=== PATIENT | female | born 1940 | race Caucasian/White ===

== ENCOUNTER 2017-12-22 10:18 | Observation (INO) | payer MEDICARE, OTHER ==
--- NOTE | 2017-12-22 10:45 | ERNOTE ---
Back Pain ER HPI Date of Service: 12/22/17 Presenting Symptoms: hx chronic back pain Time Seen by Provider: 12/22/17 10:38 Source: patient Exam Limitations: no limitations Immunizations: IMMUNIZATION HX Immunizations Up to Date Yes History of Influenza Vaccine No Hx Pneumococcal Vaccination Yes Allergies/Adverse Reactions: Allergies naloxone [From Narcan] Adverse Reaction (Verified 12/17/17 09:28) Home Medications: HOME MEDICATIONS Acetaminophen [Tylenol] 500 mg PO DAILY 12/17/17 [Last Taken Unknown] Amiodarone HCl 200 mg PO DAILY 12/17/17 [Last Taken Unknown] Cetirizine HCl [Zyrtec] 10 mg PO DAILY 12/17/17 [Last Taken Unknown] Cholecalciferol (Vitamin D3) [Vitamin D3] 2,000 unit PO DAILY 12/17/17 [Last Taken Unknown] Insulin Degludec [Tresiba Flextouch U-100] 74 unit SQ AC 12/17/17 [Last Taken Unknown] Insulin Lispro [Humalog] See Protocol SQ PRN PRN 12/17/17 [Last Taken Unknown] Levothyroxine Sodium [Tirosint] 75 mcg PO DAILY 12/17/17 [Last Taken Unknown] Losartan Potassium [Cozaar] 100 mg PO DAILY 12/17/17 [Last Taken Unknown] Metoprolol Succinate 50 mg PO DAILY 12/17/17 [Last Taken Unknown] Omeprazole 20 mg PO DAILY 12/17/17 [Last Taken Unknown] Rosuvastatin Calcium [Crestor] 20 mg PO DAILY 12/17/17 [Last Taken Unknown] Torsemide [Demadex] 20 mg PO DAILY 12/17/17 [Last Taken Unknown] predniSONE [Deltasone] 20 mg PO BID #10 tab 12/17/17 [Last Taken Unknown] - Pain Score Pain Score #1 Pain Score: 7 Narrative: The patient is a 77 year old female who presents for diarrhea dark red in color which has been present for 2 days. There are associated symptoms of malodorous stool. The patient reports pain to lumbar spine, 7/10 which has been present for 4 weeks. There are no alleviating factors. There are aggravating factors of lying flat and ambulation. Previous treatments have included: Tylenol without improvement. The past medical history includes: DM , HTN, COPD and aortic valve replacement. The social history is negative. The patient has had no ill contacts. Patient reports pain to lumbar spine with radiation into left buttock. Patient states she has numbness down both lateral leg. Patient began having dark red stools yesterday x1 episode with another episode this morning. Patient states she was previously treated with prednisone for low back pain and finished prescription yesterday. Patient was scheduled to see today for presumed scheduling of MRI for lumbar spine pain with sciatica. Review of Systems - Review of Systems Constitutional: Present: fatigue. Absent: fever EYE: Present: no symptoms reported ENT: Present: no symptoms reported. Absent: ear pain, nasal drainage, sore throat Respiratory: Present: shortness of breath, cough Cardiology: Present: no symptoms reported. Absent: chest pain Gastrointestinal/Abdominal: Present: nausea, diarrhea. Absent: vomiting, abdominal pain Genitourinary: Absent: dysuria Musculoskeletal: Present: back pain Skin: Present: no symptoms reported. Absent: rash Neurological: Present: dizziness/light-headedness Endocrine: Present: no symptoms reported Hematologic/Lymphatic: Present: no symptoms reported Psych: Present: no symptoms reported All Other Systems: All systems neg except as marked Medical History (Last Reviewed 12/22/17 @ 11:10 by JULIO Jones) COPD (chronic obstructive pulmonary disease) Diabetes HTN (hypertension) Surgical History: Surgical History (Last Reviewed 12/22/17 @ 11:10 by JULIO Jones) Coronary artery disease involving coronary bypass graft H/O heart artery stent H/O: hysterectomy Heart valve replaced Family History: Family History (Last Reviewed 12/22/17 @ 11:10 by JULIO Jones) Grandmother Heart disease Sister Cancer Son Leukemia Social History: Preferred Language Korean Do you have any congregational or Yes: babtist cultural preference? Smoking Status Former smoker Have you smoked in the past 12 No months Do you dip or chew tobacco No Alcohol Use sober Drug Use none Physical Exam - Physical Exam General Appearance: Present: wd/wn, alert, mild distress Head Exam: Present: normal inspection Eye Exam: Normal inspection: bilateral, Conjunctivae pale: bilateral Ears, Nose, Throat: Present: normal ENT inspection, normal pharynx Neck: Present: normal inspection Respiratory: Present: no respiratory distress, normal breath sounds, lungs clear Cardiovascular/Chest: Present: regular rate, rhythm, systolic murmur Peripheral Pulses: N=norm/S=strong/W=weak/B=bound/A=absent: Radial (L): Normal Gastrointestinal/Abdominal: Present: normal bowel sounds, nontender, nondistended, soft, no organomegaly, other - patient had BM in ER with mandi blood and malodorous Back Exam: Present: normal inspection, vertebral tenderness - lumbosacral, pain over left buttock Neurological Exam: Present: alert, oriented, normal mood/affect. Absent: motor weakness Skin Exam: Present: normal color, warm/dry ED Progress - Date and Time Seen: Date and Time: 12/22/17 12:53 Spoke with and patient to be referred to since she is not established. Spoke with Dr. Perez regarding care patient will be admitted under his service for lower GI bleed, diabetes, CAD, and intractable lumbar spine pain. Dr. delgado will be contacted for consult regarding lower GI bleed. Spoke with Dr. Leon he will consult as inpatient. Requested patient be set up for bleeding scan. - Results and Orders Patient's Lab Results:: I have reviewed the patient's lab results. - Vital Signs Patient's Vital Signs:: I have reviewed the patient's vital signs. Vital Signs: Vital Signs 12/22/17 10:26 Temperature 36.7 C Pulse Rate 78 Respiratory Rate 14 Blood Pressure 123/41 O2 Sat by Pulse Oximetry 95 - EKG EKG: NSR EKG read: Reviewed by me EKG Comments: Reviewed with . - X-Ray X-Ray #1 X-Ray: abdomen Interpretation: Reviewed by me X-ray Comments: X-RAY REPORT ~[id number] RAD/Abdomen Flat W/ Upright *~ Exam Date: 12/22/2017 10:48 Ordering Physician: Ayana Benitez HISTORY: gi bleed Additional history from technologist: BACK PAIN FOR 4 WEEKS-BEEN GOING TO [facility], BLOODY DIARRHEA-YESTERDAY AND TODAY TECHNIQUE: AP upright and supine views of the abdomen were obtained, total of 5 images. COMPARISONS: None available. FINDINGS: Abdomen Flat W/ Upright *: No subdiaphragmatic free air. No abnormal dilation of large or small bowel. Patient has scattered air-fluid levels throughout the nondilated small and large bowel segments throughout the abdomen. There is questionable colonic bowel wall thickening of the transverse colon in the midabdomen. Vascular calcifications is suggested. No definite signs of nephrolithiasis or ureterolithiasis. Degenerative changes of the spine and bilateral hips noted. There is a levoconvex scoliosis of the lumbar spine. IMPRESSION: 1. Abnormal but nonspecific bowel gas pattern. Potential bowel wall thickening of the transverse colon noted. Consider potential colitis. 2. Additional comments are as above. Electronically signed by Nandini Nails M.D.. - Progress/Reassessment Chief Complaint: Back Pain Plan - Plan Plan: Patient will be admitted under the service of Dr. Perez with a consult for Dr. Leon regarding lower GI bleed. Patient will receive nuc med bleeding scan prior to her admission. [facility] discussed results that were called to me by Dr. Nails with Dr. Perez prior to patient being transferred to the floor. Dr. Perez states he will follow-up with additional testing needed once patient is admitted. Departure Clinical Impression: Lower GI bleed - Departure Disposition: Still a patient Condition: Stable
[2017-12-22 11:12] LABS: Hemoglobin 9.7 gm/dL (12.5-16.0); Mean Cell Volume 83.1 fl (78-100); Mean Corpuscular Hemoglobin 26.9 pg (27-31); Mean Corpuscular Hgb Conc 32.3 g/dl (32-36); Platelet Count 388 K/mm3 (150-450); Red Blood Count 3.61 M/mm3 (4.2-5.4); Red Cell Distribution Width 13.9 % (11.5-14.0); White Blood Count 24.6 K/mm3 (4.0-10.5)
[2017-12-22 11:18] LABS: Total Cells Counted 100
[2017-12-22 11:22] LABS: Prothrombin Time (Patient) 10.8 Seconds (9.0-11.0)
[2017-12-22 11:24] LABS: Albumin * 2.7 gm/dl (3.4-5.0); Anion Gap 17.8 mmol/L (6.8-13.8); BUN/Creatinine Ratio 30.8 (9.0-21.6); Bilirubin, Total 0.2 mg/dL (0.0-1.1); Ca. Corrected For Albumin 10.3 mg/dL (8.4-10.2); Calcium * 9.6 mg/dL (7.9-10.9); Carbon Dioxide 21.4 mmol/L (24-32.6); Potassium 5.2 mmol/L (3.4-4.6); Total Protein 6.9 gm/dL (6.2-8.2)
[2017-12-22 11:27] LABS: INR 1.08 INR (0.90-1.10); Partial Thrombolplastin Time 23.4 Seconds (24-32)
[2017-12-22 11:31] LABS: Immature Granulocyte 1 (0-1); Lymphocyte 9 % (20-51); Monocyte 1 % (0-9); Neutrophil 89 % (42-75); Neutrophil # 21.9 K/mm3 (1.3-6.0); Platelet Estimate Normal (NORMAL); RBC Morphology Normal (NORMAL)
[2017-12-22] MEDS ORDERED: NORMAL SALINE 1,000 ML IV ONE (11:36)
[2017-12-22] MEDS ORDERED: PANTOPRAZOLE SODIUM 40 MG in NORMAL SALINE 100 ML IV ONE (11:48)
[2017-12-22] MEDS ORDERED: PANTOPRAZOLE SODIUM 40 MG/100 ML PIGGYBACK IV ONE (12:05)
[2017-12-22 12:15] LABS: Urine Bilirubin Negative (NEGATIVE); Urine Blood Negative /ul (NEGATIVE); Urine Ketone Negative (NEGATIVE); Urine Protein Negative (NEGATIVE); Urine Urobilinogen Normal (NORMAL); Urine pH 5.5 pH (5.0-7.0)
[2017-12-22] MEDS ORDERED: HYDROmorphone HCL 1 MG/ML DISP.SYRIN IV ONE ×4 (12:18→14:16)
[2017-12-22] MEDS ORDERED: HYDROmorphone HCL 1 MG/ML DISP.SYRIN ONE ×2 (12:18→13:46)
[2017-12-22 12:36] LABS: Urine Nitrite Positive (NEGATIVE)
[2017-12-22 12:37] LABS: Urine Appearance Slightly Cloudy (CLEAR); Urine Bacteria 3+; Urine Color Yellow; Urine RBC 0-5 /hpf (0-5)
[2017-12-22] MEDS ORDERED: ONDANSETRON HCL/PF 2 MG/ML VIAL IV PRN (12:58)
[2017-12-22] MEDS ORDERED: ONDANSETRON HCL/PF 2 MG/ML VIAL ONE (15:05)
--- NOTE | 2017-12-22 19:40 | CONS ---
[facility] - General Date of Service: 12/22/17 Source: patient, RN/MD, RN notes reviewed Exam Limitations: no limitations - History of Present Illness Initial Comments: She had a bowel movement yesterday that had blood in it, and then today had an "accident" loose BM that was blood and clots. Had another bloody stool this afternoon. NO abdominal pain. She has had 4 weeks of low back pain which is severe, for which she was to see Dr Metzger today. It is low and wraps around to right groin. She has had prior colonoscopies--the last was 5 years ago and she had a polyp removed. Does not know if she has diverticulosis. Irregular bowels, hard loose and skips days. She is on Plavix for coronary stent until March 2018 (Dr Trujillo in [place]) Allergies/Adverse Reactions: Allergies ANILA Inhibitors Adverse Reaction (Verified 12/22/17 15:39) naloxone [From Narcan] Adverse Reaction (Verified 12/17/17 09:28) naproxen [From Naprosyn] Adverse Reaction (Verified 12/22/17 15:39) Home Medications: Home Medications Medication Instructions Recorded Last Taken Acetaminophen [Tylenol] 500 mg PO DAILY 12/17/17 Unknown Amiodarone HCl 200 mg PO DAILY 12/17/17 Unknown Cetirizine HCl [Zyrtec] 10 mg PO DAILY 12/17/17 Unknown Cholecalciferol (Vitamin D3) 2,000 unit PO BID 12/17/17 Unknown [Vitamin D3] Insulin Degludec [Tresiba 74 unit SQ DAILY 12/17/17 Unknown Flextouch U-100] Insulin Lispro [Humalog] See Protocol SQ PRN PRN 12/17/17 Unknown Levothyroxine Sodium [Tirosint] 75 mcg PO DAILY 12/17/17 Unknown Losartan Potassium [Cozaar] 100 mg PO DAILY 12/17/17 Unknown Metoprolol Succinate 50 mg PO DAILY 12/17/17 Unknown Omeprazole 20 mg PO BID 12/17/17 Unknown Rosuvastatin Calcium [Crestor] 20 mg PO DAILY 12/17/17 Unknown Torsemide [Demadex] 20 mg PO DAILY 12/17/17 Unknown Medications - Medications Current Medications: Current Medications Ondansetron HCl (Zofran) 4 mg IV Q6H PRN PRN Reason: Nausea And Vomiting Stop: 01/21/18 12:59 Last Admin: 12/22/17 15:09 Dose: 4 mg Review of Systems - Review of Systems Generalized/Overall Review: Absent: Chills, Fever EENTM: Present: No Symptoms Reported Respiratory: Present: No Symptoms Reported Cardiac: Present: No Symptoms Reported Abdominal: Present: Bright blood from rectum Genitourinary: Present: No Symptoms Reported, Other - She had E Coli UTI with her heart surgery Musculoskeletal: Present: Back Pain Neurological: Present: No Symptoms Reported Skin: Present: No Symptoms Reported Physical Examination - Exam Vital Signs: Vital Signs - Last Taken Temp 36.4 C 12/22/17 17:45 Pulse 67 12/22/17 17:45 Resp 18 12/22/17 17:45 BP 147/57 12/22/17 17:45 Pulse Ox 96 12/22/17 17:45 O2 Oxygen Delivery Method Room Air Constitutional: Present: Alert, Oriented x3, Cooperative, Moderate distress, Obese ENT Exam: Present: normal ENT inspection Eye Exam: bilateral eye: normal inspection Neck: Present: normal inspection Respiratory: Present: no respiratory distress Cardiovascular/Chest: Present: regular rate, rhythm Abdomen: Present: other - Protuberant and tympanitic. 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 as tested, no motor/sensory deficits Appearance: Present: appropriate appearance, appropriate insight Eye contact: Present: cooperative, good eye contact, normal speech Thoughts: Present: normal thought pattern - Results and Findings: Lab/Microbiology results last 24 hrs: Abnormal/Pending Laboratory Last 24 HRS 12/22/17 12/22/17 12/22/17 11:51 11:51 11:00 WBC RBC Hgb Hct MCH Neutrophils % (Manual) Lymphocytes % (Manual) Neutrophils # (Manual) ESR PTT (Anmol) Potassium Carbon Dioxide Anion Gap BUN Creatinine Est GFR (Non-Af Amer) BUN/Creatinine Ratio Random Glucose Calcium Adj for Albumin ALT C-Reactive Prot, Quant 12.5 H Albumin Lipase Urine Nitrate Positive H Ur Leukocyte Esterase 75 H Urine WBC 5-10 H Ur Epithelial Cells 10-25 H Urine Bacteria 3+ H Stool Occult Blood Positive H 12/22/17 12/22/17 12/22/17 11:00 11:00 11:00 WBC 24.6 H RBC 3.61 L Hgb 9.7 L Hct 30.0 L MCH 26.9 L Neutrophils % (Manual) 89 H Lymphocytes % (Manual) 9 L Neutrophils # (Manual) 21.9 H ESR 98 H PTT ([place]) Potassium 5.2 H Carbon Dioxide 21.4 L Anion Gap 17.8 H BUN 78 H Creatinine 2.53 H Est GFR (Non-Af Amer) 20 L BUN/Creatinine Ratio 30.8 H Random Glucose 190 H Calcium Adj for Albumin 10.3 H ALT 13 L C-Reactive Prot, Quant Albumin 2.7 L Lipase 533 H Urine Nitrate Ur Leukocyte Esterase Urine WBC Ur Epithelial Cells Urine Bacteria Stool Occult Blood 12/22/17 11:00 WBC RBC Hgb Hct MCH Neutrophils % (Manual) Lymphocytes % (Manual) Neutrophils # (Manual) ESR PTT (Anmol) 23.4 L Potassium Carbon Dioxide Anion Gap BUN Creatinine Est GFR (Non-Af Amer) BUN/Creatinine Ratio Random Glucose Calcium Adj for Albumin ALT C-Reactive Prot, Quant Albumin Lipase Urine Nitrate Ur Leukocyte Esterase Urine WBC Ur Epithelial Cells Urine Bacteria Stool Occult Blood Negative tagged RBC nuclear med bleeding scan Non-specific bowel gas pattern---comment on possible thickened transverse colon - Assessments/Findings (1) Lower GI bleed Diagnosis(s): There is no active bleeding and she is hemodynamically stable. Although she has elevated WBC/ESR/CRP there are no physical findings to suggest colitis. She could be at risk for ischemic colitis given ASCVD however no pain or tenderness. Most likely souce is diverticular bleed that has stopped. Could have colonoscopy as outpatient if Hgb and Hgb stabilize. Pamphlets on colonoscopy and diverticulitis reviewed and given to her. She has U/A evidence of UTI. C&S pending Could get U/S to investigate abdominal aorta for aneurism. Ordered serial Hgb, will follow Problem: Acute
[2017-12-22] MEDS ORDERED: PANTOPRAZOLE SODIUM 20 MG TABLET.DR ONE (20:24)
--- NOTE | 2017-12-22 20:44 | HP ---
Chief Complaint - Chief Complaint Date of Service: 12/22/17 Time of Service: 19:45 Chief Complaint: Rectal bleeding, severe low back pain History of Present Illness: Lisa Valderrama is a 77-year-old female who presented to ER with chief complaint of rectal bleeding. Bleeding apparently stopped and she in the emergency room and she's had no further bleeding since admission. She has not had any previous episodes of rectal bleeding. She had a screening colonoscopy done about 5 years ago. She has alternating diarrhea and constipation chronically. She has a history of diverticular disease. She's had no recent weight loss. She is also complaining of severe pain in her low back. She was scheduled to see Dr. Metzger today but she couldn't get to the office because of bleeding. There is consideration for doing some low back injections. She also has diabetes mellitus, history of coronary artery disease, and is obese. Medical History (Last Reviewed 12/22/17 @ 15:38 by Angela Jimenez RN) COPD (chronic obstructive pulmonary disease) Diabetes HTN (hypertension) Surgical History: Surgical History (Last Reviewed 12/22/17 @ 15:38 by Angela Jimenez RN) Coronary artery disease involving coronary bypass graft H/O heart artery stent H/O: hysterectomy Heart valve replaced Family History: Family History (Last Reviewed 12/22/17 @ 15:38 by Angela Jimenez RN) Grandmother Heart disease Sister Cancer Son Leukemia Social History: Patient Lives/Resources Home Utilized Preferred Language Slovak Do you have any islam or No cultural preference? Smoking Status Former smoker Have you smoked in the past 12 No months Do you dip or chew tobacco No Alcohol Use sober Drug Use none Review Of Systems (GEN) - Review of Systems Generalized/Overall Review: Present: Weakness. Absent: Weight loss, Weight gain EENTM: Present: No Symptoms Reported Respiratory: Present: No Symptoms Reported Cardiac: Present: No Symptoms Reported Abdominal: Present: Bright blood from rectum Genitourinary: Present: No Symptoms Reported Musculoskeletal: Present: No Symptoms Reported Neurological: Present: No Symptoms Reported Skin: Present: No Symptoms Reported Endocrine: Present: No Symptoms Reported Misc: All systems neg except as marked Immunizations: IMMUNIZATION HX Immunizations Up to Date Yes History of Influenza Vaccine No Hx Pneumococcal Vaccination Yes Allergies/Adverse Reactions: Allergies Allergy/AdvReac Type Severity Reaction Status Date / Time ANILA Inhibitors AdvReac Verified 12/22/17 15:39 naloxone [From Narcan] AdvReac Verified 12/17/17 09:28 naproxen [From Naprosyn] AdvReac Verified 12/22/17 15:39 Home Medications: HOME MEDICATIONS Acetaminophen [Tylenol] 500 mg PO DAILY 12/17/17 [Last Taken Unknown] Amiodarone HCl 200 mg PO DAILY 12/17/17 [Last Taken Unknown] Cetirizine HCl [Zyrtec] 10 mg PO DAILY 12/17/17 [Last Taken Unknown] Cholecalciferol (Vitamin D3) [Vitamin D3] 2,000 unit PO BID 12/17/17 [Last Taken Unknown] Insulin Degludec [Tresiba Flextouch U-100] 74 unit SQ DAILY 12/17/17 [Last Taken Unknown] Insulin Lispro [Humalog] See Protocol SQ PRN PRN 12/17/17 [Last Taken Unknown] Levothyroxine Sodium [Tirosint] 75 mcg PO DAILY 12/17/17 [Last Taken Unknown] Losartan Potassium [Cozaar] 100 mg PO DAILY 12/17/17 [Last Taken Unknown] Metoprolol Succinate 50 mg PO DAILY 12/17/17 [Last Taken Unknown] Omeprazole 20 mg PO BID 12/17/17 [Last Taken Unknown] Rosuvastatin Calcium [Crestor] 20 mg PO DAILY 12/17/17 [Last Taken Unknown] Torsemide [Demadex] 20 mg PO DAILY 12/17/17 [Last Taken Unknown] Clopidogrel Bisulfate [Plavix] 75 mg PO DAILY 12/23/17 [Last Taken 12/22/17] Exam - Exam Vital Signs: Vital Signs - Last Taken Temp 36.4 C 12/22/17 17:45 Pulse 67 12/22/17 17:45 Resp 18 12/22/17 17:45 BP 147/57 12/22/17 17:45 Pulse Ox 96 12/22/17 17:45 Constitutional: Present: Alert, Oriented x3, Cooperative, Well developed, Well nourished, Mild distress Eye Exam: bilateral eye: normal inspection, PERRL, EOMI Neck: Present: non-tender, full range of motion, supple, normal inspection, trachea midline, limited range of motion Back Exam: Present: normal inspection, no CVA tenderness, vertebral tenderness, other - Severe low back pain Breasts: Present: Exam deferred Respiratory: Present: chest non-tender, lungs clear, no respiratory distress Cardiovascular/Chest: Present: normal peripheral pulses, regular rate, rhythm, no chest tenderness, no edema, no gallop, no JVD, no murmur, no rub Peripheral Pulses: carotid (R): 2+, carotid (L): 2+, radial (R): 2+, radial (L) : 2+ Abdomen: Present: Normal bowel sounds, soft, nontender, nondistended, no rebound tenderness, no hepatospenomegaly, no masses, obese /Rectal: Present: Exam deferred Extremity: Present: normal range of motion, non-tender, normal inspection, no pedal edema Skin Exam: Present: normal color, warm/dry, no cyanosis Lymphatic: Present: no adenopathy Neurologic: Present: field coordinator II-XII nml as tested Appearance: Present: appropriate appearance, appropriate insight, neat Eye contact: Present: cooperative, good eye contact Thoughts: Present: normal thought pattern, no apparent hallucination Diagnostic Studies: Abnormal Lab Results 12/22/17 12/22/17 12/22/17 Range/Units 11:00 11:00 11:00 WBC 24.6 H (4.0-10.5) K/mm3 RBC 3.61 L (4.2-5.4) M/mm3 Hgb 9.7 L (12.5-16.0) gm/dL Hct 30.0 L (37.0-47.0) % MCH 26.9 L (27-31) pg Neutrophils % (Manual) 89 H (42-75) % Lymphocytes % (Manual) 9 L (20-51) % Neutrophils # (Manual) 21.9 H (1.3-6.0) K/mm3 ESR (0-15) mm/hr PTT ([place]) 23.4 L (24-32) Seconds Potassium 5.2 H (3.4-4.6) mmol/L Carbon Dioxide 21.4 L (24-32.6) mmol/L Anion Gap 17.8 H (6.8-13.8) mmol/L BUN 78 H (3-23) mg/dL Creatinine 2.53 H (0.4-1.4) mg/dL Est GFR (Non-Af Amer) 20 L (60-130) mL/min BUN/Creatinine Ratio 30.8 H (9.0-21.6) Random Glucose 190 H (70-110) mg/dL Calcium Adj for Albumin 10.3 H (8.4-10.2) mg/dL ALT 13 L (19-67) U/L C-Reactive Prot, Quant (0.0-0.9) mg/dL Albumin 2.7 L (3.4-5.0) gm/dl Lipase 533 H (73-393) U/L Urine Nitrate (NEGATIVE) Ur Leukocyte Esterase (NEGATIVE) /ul Urine WBC (0-5) /hpf Ur Epithelial Cells (0-5) /hpf Urine Bacteria (NONE) Stool Occult Blood 12/22/17 12/22/17 12/22/17 Range/Units 11:00 11:00 11:51 WBC (4.0-10.5) K/mm3 RBC (4.2-5.4) M/mm3 Hgb (12.5-16.0) gm/dL Hct (37.0-47.0) % MCH (27-31) pg Neutrophils % (Manual) (42-75) % Lymphocytes % (Manual) (20-51) % Neutrophils # (Manual) (1.3-6.0) K/mm3 ESR 98 H (0-15) mm/hr PTT ([place]) (24-32) Seconds Potassium (3.4-4.6) mmol/L Carbon Dioxide (24-32.6) mmol/L Anion Gap (6.8-13.8) mmol/L BUN (3-23) mg/dL Creatinine (0.4-1.4) mg/dL Est GFR (Non-Af Amer) (60-130) mL/min BUN/Creatinine Ratio (9.0-21.6) Random Glucose (70-110) mg/dL Calcium Adj for Albumin (8.4-10.2) mg/dL ALT (19-67) U/L C-Reactive Prot, Quant 12.5 H (0.0-0.9) mg/dL Albumin (3.4-5.0) gm/dl Lipase (73-393) U/L Urine Nitrate Positive H (NEGATIVE) Ur Leukocyte Esterase 75 H (NEGATIVE) /ul Urine WBC 5-10 H (0-5) /hpf Ur Epithelial Cells 10-25 H (0-5) /hpf Urine Bacteria 3+ H (NONE) Stool Occult Blood 12/22/17 Range/Units 11:51 WBC (4.0-10.5) K/mm3 RBC (4.2-5.4) M/mm3 Hgb (12.5-16.0) gm/dL Hct (37.0-47.0) % MCH (27-31) pg Neutrophils % (Manual) (42-75) % Lymphocytes % (Manual) (20-51) % Neutrophils # (Manual) (1.3-6.0) K/mm3 ESR (0-15) mm/hr PTT ([place]) (24-32) Seconds Potassium (3.4-4.6) mmol/L Carbon Dioxide (24-32.6) mmol/L Anion Gap (6.8-13.8) mmol/L BUN (3-23) mg/dL Creatinine (0.4-1.4) mg/dL Est GFR (Non-Af Amer) (60-130) mL/min BUN/Creatinine Ratio (9.0-21.6) Random Glucose (70-110) mg/dL Calcium Adj for Albumin (8.4-10.2) mg/dL ALT (19-67) U/L C-Reactive Prot, Quant (0.0-0.9) mg/dL Albumin (3.4-5.0) gm/dl Lipase (73-393) U/L Urine Nitrate (NEGATIVE) Ur Leukocyte Esterase (NEGATIVE) /ul Urine WBC (0-5) /hpf Ur Epithelial Cells (0-5) /hpf Urine Bacteria (NONE) Stool Occult Blood Positive H Laboratory Results WBC 24.6 K/mm3 (4.0-10.5) H 12/22/17 11:00 RBC 3.61 M/mm3 (4.2-5.4) L 12/22/17 11:00 Hgb 9.7 gm/dL (12.5-16.0) L 12/22/17 11:00 Hct 30.0 % (37.0-47.0) L 12/22/17 11:00 MCV 83.1 fl (78-100) 12/22/17 11:00 MCH 26.9 pg (27-31) L 12/22/17 11:00 MCHC 32.3 g/dl (32-36) 12/22/17 11:00 RDW 13.9 % (11.5-14.0) 12/22/17 11:00 Plt Count 388 K/mm3 (150-450) 12/22/17 11:00 MPV 8.0 fl (8-12.5) 12/22/17 11:00 Neutrophils % (Manual) 89 % (42-75) H 12/22/17 11:00 Lymphocytes % (Manual) 9 % (20-51) L 12/22/17 11:00 Monocytes % (Manual) 1 % (0-9) 12/22/17 11:00 Immature Granulocytes 1 (0-1) 12/22/17 11:00 Neutrophils # (Manual) 21.9 K/mm3 (1.3-6.0) H 12/22/17 11:00 Lymphocytes # (Manual) 2.2 k/mm3 (1.5-3.5) 12/22/17 11:00 Monocytes # (Manual) 0.2 k/mm3 (0.0-1.0) 12/22/17 11:00 Platelet Estimate Normal (NORMAL) 12/22/17 11:00 RBC Morphology Normal (NORMAL) 12/22/17 11:00 ESR 98 mm/hr (0-15) H 12/22/17 11:00 PT 10.8 Seconds (9.0-11.0) 12/22/17 11:00 INR (Anticoag Therapy) 1.08 INR (0.90-1.10) 12/22/17 11:00 PTT ([place]) 23.4 Seconds (24-32) L 12/22/17 11:00 Sodium 137 mmol/L (132-142) 12/22/17 11:00 Plasma Sodium 138 mmol/L (130-142) 12/22/17 11:00 Potassium 5.2 mmol/L (3.4-4.6) H 12/22/17 11:00 Chloride 103 mmol/L (97-106) 12/22/17 11:00 Carbon Dioxide 21.4 mmol/L (24-32.6) L 12/22/17 11:00 Anion Gap 17.8 mmol/L (6.8-13.8) H 12/22/17 11:00 BUN 78 mg/dL (3-23) H 12/22/17 11:00 Creatinine 2.53 mg/dL (0.4-1.4) H 12/22/17 11:00 Est GFR (Non-Af Amer) 20 mL/min (60-130) L 12/22/17 11:00 BUN/Creatinine Ratio 30.8 (9.0-21.6) H 12/22/17 11:00 Random Glucose 190 mg/dL (70-110) H 12/22/17 11:00 Lactic Acid, Venous 1.1 mmol/L (0.4-2.0) 12/22/17 11:00 Calcium 9.6 mg/dL (7.9-10.9) 12/22/17 11:00 Calcium Adj for Albumin 10.3 mg/dL (8.4-10.2) H 12/22/17 11:00 Total Bilirubin 0.2 mg/dL (0.0-1.1) 12/22/17 11:00 AST 11 U/L (0-48) 12/22/17 11:00 ALT 13 U/L (19-67) L 12/22/17 11:00 Alkaline Phosphatase 78 U/L (50-170) 12/22/17 11:00 C-Reactive Prot, Quant 12.5 mg/dL (0.0-0.9) H 12/22/17 11:00 Total Protein 6.9 gm/dL (6.2-8.2) 12/22/17 11:00 Albumin 2.7 gm/dl (3.4-5.0) L 12/22/17 11:00 Amylase 42 U/L (25-115) 12/22/17 11:00 Lipase 533 U/L (73-393) H 12/22/17 11:00 Urine Color Yellow 12/22/17 11:51 Urine Appearance Slightly cloudy (CLEAR) 12/22/17 11:51 Urine pH 5.5 pH (5.0-7.0) 12/22/17 11:51 Ur Specific [place] 1.020 SP.GR. (1.005-1.010) 12/22/17 11:51 Urine Protein Negative mg/dL (NEGATIVE) 12/22/17 11:51 Urine Glucose (UA) Negative mg/dL (NEGATIVE) 12/22/17 11:51 Urine Ketones Negative mg/dL (NEGATIVE) 12/22/17 11:51 Urine Blood Negative /ul (NEGATIVE) 12/22/17 11:51 Urine Nitrate Positive (NEGATIVE) H 12/22/17 11:51 Urine Bilirubin Negative mg/dl (NEGATIVE) 12/22/17 11:51 Urine Urobilinogen Normal EU/dl (NORMAL) 12/22/17 11:51 Ur Leukocyte Esterase 75 /ul (NEGATIVE) H 12/22/17 11:51 Urine RBC 0-5 /hpf (0-5) 12/22/17 11:51 Urine WBC 5-10 /hpf (0-5) H 12/22/17 11:51 Ur Epithelial Cells 10-25 /hpf (0-5) H 12/22/17 11:51 Urine Bacteria 3+ (NONE) H 12/22/17 11:51 Urine Culture Comments Culture to follow 12/22/17 11:51 Stool Occult Blood Positive H 12/22/17 11:51 Blood Type A Positive 12/22/17 11:00 Antibody Screen Negative 12/22/17 11:00 Assessment/Plan - Narrative Narrative: Mrs Valderrama is a 77 yo wh fe admitted with dx. of Lower GI bleed. She also has DMII and CAD. 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 She is on Plavix and aspirin which is being held pending status of her GI bleed. She is a very pleasant lady and a good historian. There is no active gross bleeding at this time. Dr. Leon will see her and advise of procedural needs. - Assessment/Plan (1) Lower GI bleed Problem: Acute (2) Low back pain due to bilateral sciatica Problem: Acute (3) H/O aortic valve replacement with porcine valve Problem: Chronic (4) History of mitral valve replacement with porcine valve Problem: Chronic (5) CAD (coronary artery disease) Problem: Chronic Qualifiers: Coronary Disease-Associated Artery/Lesion type: [place] artery [place] vs. transplanted heart: [place] heart Associated angina: without angina Qualified Code(s): I25.10 - Atherosclerotic heart disease of [place] coronary artery without angina pectoris
[2017-12-22] MEDS ORDERED: ROSUVASTATIN CALCIUM 10 MG TABLET ONE (20:53)
[2017-12-22] MEDS ORDERED: METOPROLOL SUCCINATE 50 MG TABLET.SA PO ONE (20:53)
[2017-12-22] MEDS: PANTOPRAZOLE SODIUM 20 MG TABLET.DR PO SCH (20:56)
[2017-12-22] MEDS: METOPROLOL SUCCINATE 50 MG TABLET.SA PO SCH (20:57)
[2017-12-22] MEDS: HYDROmorphone HCL 1 MG/ML DISP.SYRIN IV PRN (21:00)
[2017-12-22] MEDS: CHOLECALCIFEROL 1,000 UNIT CAPSULE PO SCH (21:25)
[2017-12-23] MEDS: ACETAMINOPHEN 500 MG TABLET PO PRN ×2 (00:59→07:00)
[2017-12-23] MEDS: HYDROmorphone HCL 1 MG/ML DISP.SYRIN IV PRN (03:53)
[2017-12-23 05:38] LABS: Anion Gap 12.3 mmol/L (6.8-13.8); BUN/Creatinine Ratio 33.1 (9.0-21.6); Calcium * 9.4 mg/dL (7.9-10.9); Carbon Dioxide 26.3 mmol/L (24-32.6); Estimated Creat Clear 23.2; Potassium 4.6 mmol/L (3.4-4.6)
[2017-12-23 05:40] LABS: Hematocrit 28.2 % (37.0-47.0); Hemoglobin 8.8 gm/dL (12.5-16.0); Mean Cell Volume 84.7 fl (78-100); Mean Corpuscular Hemoglobin 26.4 pg (27-31); Mean Corpuscular Hgb Conc 31.2 g/dl (32-36); Mean Platelet Volume 8.3 fl (8-12.5); Neutrophil # 15.6 K/mm3 (1.3-6.0); Platelet Count 378 K/mm3 (150-450); Red Blood Count 3.33 M/mm3 (4.2-5.4); Red Cell Distribution Width 13.9 % (11.5-14.0); White Blood Count 19.3 K/mm3 (4.0-10.5)
[2017-12-23] MEDS ORDERED: DEXTROSE 4 GM/TAB BTL PO STA (06:02)
[2017-12-23] MEDS: PANTOPRAZOLE SODIUM 20 MG TABLET.DR PO SCH (06:57)
[2017-12-23] MEDS ORDERED: LEVOTHYROXINE SODIUM 75 MCG TABLET PO SCH (07:00)
[2017-12-23] MEDS: CHOLECALCIFEROL 1,000 UNIT CAPSULE PO SCH (08:32)
[2017-12-23] MEDS: METOPROLOL SUCCINATE 50 MG TABLET.SA PO SCH (08:32)
[2017-12-23] MEDS ORDERED: LOSARTAN POTASSIUM 50 MG TABLET PO SCH (09:00)
[2017-12-23] MEDS ORDERED: ACETAMINOPHEN 500 MG TABLET PO SCH (09:00)
[2017-12-23] MEDS ORDERED: LORATADINE 10 MG TABLET PO SCH ×2 (09:00→21:00)
[2017-12-23] MEDS ORDERED: ROSUVASTATIN CALCIUM 20 MG TABLET PO SCH ×2 (09:00→21:00)
[2017-12-23] MEDS ORDERED: AMIODARONE HCL 200 MG TABLET PO SCH (09:00)
[2017-12-23] MEDS ORDERED: INSULIN DEGLUDEC SQ SCH (09:00)
--- NOTE | 2017-12-23 10:46 | DS ---
(1) Lower GI bleed Problem: Acute (2) Low back pain due to bilateral sciatica Problem: Acute (3) H/O aortic valve replacement with porcine valve Problem: Chronic (4) History of mitral valve replacement with porcine valve Problem: Chronic (5) CAD (coronary artery disease) Problem: Chronic Qualifiers: Coronary Disease-Associated Artery/Lesion type: [place] artery [place] vs. transplanted heart: [place] heart Associated angina: without angina Qualified Code(s): I25.10 - Atherosclerotic heart disease of [place] coronary artery without angina pectoris Description of Stay: She has not rebled. Dr. Leon believes she has had a blled from a diverticulum but is not activel bleeding. She has been very stable and in no distress. Hb is stable. Main complants are the pain in her low back that is radiating into the hip areas and being concerned about being off of her anticoagulant therapy which she takes due to her prosthetic porcine valves. She has eaten well this morning and feels like she can go home. Procedures Performed: none Results and Findings: Pending Mircobiology Results 12/22/17 12:37 Urine,Clean Catch Urine Culture - Preliminary Gram Negative Bacilli Lab Pending Results 12/22/17 11:00: PT 10.8, INR (Anticoag Therapy) 1.08, PTT ([place]) 23.4 L 12/22/17 11:00: Blood Type A Positive, Antibody Screen Negative 12/22/17 11:00: WBC 24.6 H, RBC 3.61 L, Hgb 9.7 L, Hct 30.0 L, MCV 83.1, MCH 26.9 L, MCHC 32.3, RDW 13.9, Plt Count 388, MPV 8.0, Neutrophils % (Manual) 89 H , Lymphocytes % (Manual) 9 L, Monocytes % (Manual) 1, Immature Granulocytes 1, Neutrophils # (Manual) 21.9 H, Lymphocytes # (Manual) 2.2, Monocytes # (Manual) 0.2, Platelet Estimate Normal, RBC Morphology Normal 12/22/17 11:00: Sodium 137, Plasma Sodium 138, Potassium 5.2 H, Chloride 103, Carbon Dioxide 21.4 L, Anion Gap 17.8 H, BUN 78 H, Creatinine 2.53 H, Est GFR ( Non-Af Amer) 20 L, BUN/Creatinine Ratio 30.8 H, Random Glucose 190 H, Calcium 9.6, Calcium Adj for Albumin 10.3 H, Total Bilirubin 0.2, AST 11, ALT 13 L, Alkaline Phosphatase 78, Total Protein 6.9, Albumin 2.7 L, Amylase 42, Lipase 533 H 12/22/17 11:00: ESR 98 H 12/22/17 11:00: C-Reactive Prot, Quant 12.5 H 12/22/17 11:00: Lactic Acid, Venous 1.1 12/22/17 11:51: Urine Color Yellow, Urine Appearance Slightly cloudy, Urine pH 5.5, Ur Specific [place] 1.020, Urine Protein Negative, Urine Glucose (UA) Negative, Urine Ketones Negative, Urine Blood Negative, Urine Nitrate Positive H , Urine Bilirubin Negative, Urine Urobilinogen Normal, Ur Leukocyte Esterase 75 H, Urine RBC 0-5, Urine WBC 5-10 H, Ur Epithelial Cells 10-25 H, Urine Bacteria 3+ H, Urine Culture Comments Culture to follow 12/22/17 11:51: Stool Occult Blood Positive H 12/23/17 05:16: WBC 19.3 H D, RBC 3.33 L, Hgb 8.8 L, Hct 28.2 L, MCV 84.7, MCH 26.4 L, MCHC 31.2 L, RDW 13.9, Plt Count 378, MPV 8.3, Immature Gran % (Auto) 2.90 H, Immature Gran # (Auto) 0.56 H, Neutrophils % 81.0 H, Lymphocytes % 8.8 L , Monocytes % 6.2, Eosinophils % 0.8, Basophils % 0.3, Nucleated RBC % 0.0, Neutrophils # 15.6 H, Lymphocytes # 1.70, Monocytes # 1.2 H, Eosinophils # 0.2, Absolute Basophils 0.1 12/23/17 05:16: Sodium 139, Plasma Sodium 138, Potassium 4.6, Chloride 105, Carbon Dioxide 26.3, Anion Gap 12.3, BUN 58 H, Creatinine 1.75 H D, Est GFR (Non -Af Amer) 30 L D, BUN/Creatinine Ratio 33.1 H, Random Glucose 61 L D, Calcium 9.4 Discharge Location: Home Disposition: Home self-care Condition: Fair Face to Face Encounter completed per CMS Guidelines: No Discharge Activity: Activity as tolerated Discharge Diet: Consistent carbs Referrals: Courtney Luna FNP [Primary Care Provider] - Consultation Done:: Dr. Mariama Leon MD Problem Oriented Discharge Instructions to Patient/Family: Gastrointestinal Bleeding, [id number] Additional Patient Instructions (free text): -Please make TCM appointment unless alf discharge. Thank you! Lanette @ [phone]. Prescriptions (Any new or edited meds): oxyCODONE HCL/ACETAMINOPHEN [Percocet 5 MG/325 MG] 1 tab PO QID PRN #28 tab PRN Reason: Pain Complete Home Medications List: Complete Home Medication List: Acetaminophen [Tylenol] 500 mg PO DAILY 12/17/17 Amiodarone HCl 200 mg PO DAILY 12/17/17 Cetirizine HCl [Zyrtec] 10 mg PO DAILY 12/17/17 Cholecalciferol (Vitamin D3) [Vitamin D3] 2,000 unit PO BID 12/17/17 Insulin Degludec [Tresiba Flextouch U-100] 74 unit SQ DAILY 12/17/17 Insulin Lispro [Humalog] See Protocol SQ PRN PRN 12/17/17 Levothyroxine Sodium [Tirosint] 75 mcg PO DAILY 12/17/17 Losartan Potassium [Cozaar] 100 mg PO DAILY 12/17/17 Metoprolol Succinate 50 mg PO DAILY 12/17/17 Omeprazole 20 mg PO BID 12/17/17 Rosuvastatin Calcium [Crestor] 20 mg PO DAILY 12/17/17 Torsemide [Demadex] 20 mg PO DAILY 12/17/17 Clopidogrel Bisulfate [Plavix] 75 mg PO DAILY 12/23/17 oxyCODONE HCL/ACETAMINOPHEN [Percocet 5 MG/325 MG] 1 tab PO QID PRN #28 tab
[2017-12-23 11:59] VITALS: BP 100/50
[2017-12-23] MEDS ORDERED: METOPROLOL SUCCINATE 50 MG TABLET.SA PO SCH (21:00)
== END 2017-12-23 12:46 | disposition home or self-care (01) ==
LOC: ER 10:18 → MS 12:36 → INTOOBSV 12:36 → MS 15:27
PROVIDERS: ADMIT Family Medicine; ATTEND Family Medicine
CPT/HCPCS: 36415; 74019; 74020; 78278; 80048; 80053; 81001; 82150; 82272; 83605; 83690; 85014; 85018; 85025; 85610; 85652; 85730; 86140; 86850; 86900; 87077; 87086; 87186; 90686; 93005; 94660; 96361; 96365; 96375; 96376; 99285; A9560; G0008; G0378; J2405